=== PATIENT | female | born 1965 | race Caucasian/White ===

== ENCOUNTER → 2016-12-21 | Outpatient (CLI) | payer BC ==
[~2016-12-21] MED LIST: SLEEP MED; VISTARIL50 MG PO; ZOLOFT50 MG PO; ZYRTEC10 M4 PO
--- NOTE | ~2016-12-21 | MY29 ---
[facility] A Service of [facility] & [facility] RADIOLOGY TEXT RESULTS PATIENT: HERNÁN IVERSON LOCATION: [facility] : 65 UNIT #: [id number] AGE: [address]: DERECK SOSA MD SEX: F ORDER DR: [id number] [facility] [address] [place], [place] [address] [id number] O MR#: [id number] Acc #: [id number] NAME: HERNÁN IVERSON : 1965 SEX: F STUDY DATE/TIME: 12/21/2016 9:59 UNIT: [facility] ROOM: STUDY DESCRIPTION: MY YANELI SCREENING W/ CAD BILAT Attending Physician: Roberta Sosa M.D. Referring Physician: Roberta Sosa M.D. Ordering Physician: Roberta Sosa M.D. Primary Care Physician: Roberta Sosa M.D. MEDICAL IMAGING REPORT This report is preliminary unless electronic signature is present EXAM Digital screening mammogram, 12/21/2016 HISTORY 51-year-old woman positive family history, aunt. Annual screening. COMPARISON Mammograms date to 04/23/2006 with most recent 12/19/2015. FINDINGS Digital imaging of each breast was completed utilizing a two-view examination of each breast in craniocaudal and mediolateral-oblique projections. Review and interpretation of digital mammograms include a second review in conjunction with FDA-approved CAD device. There is a normal parenchymal presentation bilaterally consistent with the patient's age. There are no breast masses imaged and no parenchymal asymmetry is visualized. There are no suspicious microcalcifications and I see no focal architectural disturbance. IMPRESSION Negative screening digital mammogram. One-year followup recommended. Patients over the age of 40 are entered into a reminder system with target due date for the next mammogram. A result letter will also be sent to the patient. BIRADS: 1 Negative Dictated by... Panda Werner M.D. THIS IS AN ELECTRONICALLY VERIFIED REPORT Panda Werner M.D. at 12/21/2016 3:55 PM [facility] A Service of [facility] & [facility] RADIOLOGY TEXT RESULTS PATIENT: HERNÁN IVERSON LOCATION: [facility] : 65 UNIT #: [id number] AGE: [address]: DERECK SOSA MD SEX: F ORDER DR: Blossom TD: 12/21/2016 15:44 JOB #: [id number] MEDICAL IMAGING REPORT Page 1 of 1 COPY
== END | disposition home or self-care (01) ==
LOC: CWCC 09:08
DX: Z12.31 Encounter for screening mammogram for malignant neoplasm of breast (principal); Z80.3 Family history of malignant neoplasm of breast
CPT/HCPCS: G0202